=== PATIENT | female | born 1945 | race Caucasian/White ===

== ENCOUNTER → 2016-08-04 | Outpatient (CLI) | payer OTHER | LOC: CIMAGING 14:52 | DX: Z12.31 Encounter for screening mammogram for malignant neoplasm of breast (principal); Z80.3 Family history of malignant neoplasm of breast | CPT/HCPCS: G0202 ==

== ENCOUNTER → 2017-08-07 | Outpatient (CLI) | payer OTHER | LOC: CIMAGING 08:14 | PROVIDERS: ATTEND Family Medicine | DX: Z12.31 Encounter for screening mammogram for malignant neoplasm of breast (principal); Z80.3 Family history of malignant neoplasm of breast ==

== ENCOUNTER → 2017-08-09 | Outpatient (CLI) | payer OTHER | LOC: FIMAGING 12:45 | PROVIDERS: ATTEND Family Medicine | DX: Z13.820 Encounter for screening for osteoporosis (principal); M81.0 Age-related osteoporosis without current pathological fracture ==

== ENCOUNTER → 2017-08-21 | Outpatient (CLI) | payer OTHER | LOC: CIMAGING 13:18 | PROVIDERS: ATTEND Family Medicine | DX: R92.8 Other abnormal and inconclusive findings on diagnostic imaging of breast (principal) ==

== ENCOUNTER → 2017-12-02 | Outpatient (CLI) | payer OTHER | LOC: FIMAGING 11:02 | PROVIDERS: ATTEND Physician Assistant Surgical | DX: M51.36 Other intervertebral disc degeneration, lumbar region (principal); M48.061 Spinal stenosis, lumbar region without neurogenic claudication; M51.26 Other intervertebral disc displacement, lumbar region ==

== ENCOUNTER → 2017-12-05 | Outpatient (CLI) | payer OTHER | LOC: CIMAGING 08:18 | PROVIDERS: ATTEND Neurological Surgery | DX: M54.41 Lumbago with sciatica, right side (principal); Z98.1 Arthrodesis status | CPT/HCPCS: 72100-PO ==

== ENCOUNTER → 2018-08-09 | Outpatient (CLI) | payer OTHER | LOC: CIMAGING 09:26 ==